=== PATIENT | female | born 1960 | race Caucasian/White ===

== ENCOUNTER 2021-06-10 10:02 | Inpatient (IN) | payer OTHER ==
[~2021-06-10] VITALS: Ht 160 cm; Wt 98.4 kg
[2021-06-10 10:29] LABS: HEMOGLOBIN 14.8 gm/dl (12.3-15.3); RED BLOOD COUNT 4.85 M/UL (4.00-5.10); WHITE BLOOD COUNT 18.1 K/UL (4.5-11.0)
[2021-06-10 10:55] LABS: BUN/CREATININE RATIO 20 (0-10)
[2021-06-10] MEDS ORDERED: MONTELUKAST SOD10 MG PO (16:20)
[2021-06-10] MEDS ORDERED: JANUVIA100 MG PO (16:20)
[2021-06-10] MEDS ORDERED: CARVEDILOL25 MG PO (16:21)
[2021-06-10] MEDS ORDERED: ATORVASTATIN CA20 MG PO (16:21)
[2021-06-10] MEDS ORDERED: BENAZEPRIL HCL20 MG PO (16:21)
[2021-06-10] MEDS ORDERED: CELEXA40 MG PO (16:22)
[2021-06-10] MEDS ORDERED: HYDROCHLOROTHIA25 MG PO (16:22)
[2021-06-10] MEDS ORDERED: GLYBURIDE5 MG PO (16:22)
[2021-06-10] MEDS ORDERED: LEVOTHYROXINE25 MCG PO (16:23)
[2021-06-10] MEDS ORDERED: ASPIRIN EC81 MG PO (16:23)
[2021-06-10] MEDS ORDERED: OMEPRAZOLE40 MG PO (16:23)
[2021-06-10] MEDS ORDERED: FISH OIL 1,0001 EAC1 PO (16:24)
[2021-06-10] MEDS ORDERED: DAILY VALUE1 EACH PO (16:24)
[2021-06-11 06:01] LABS: HEMOGLOBIN 12.6 gm/dl (12.3-15.3); RED BLOOD COUNT 4.22 M/UL (4.00-5.10)
[2021-06-11 06:23] LABS: BUN/CREATININE RATIO 20 (0-10)
[2021-06-12 06:52] LABS: HEMOGLOBIN 12.4 gm/dl (12.3-15.3); RED BLOOD COUNT 4.17 M/UL (4.00-5.10); WHITE BLOOD COUNT 13.8 K/UL (4.5-11.0)
[2021-06-12 07:37] LABS: BUN/CREATININE RATIO 20 (0-10)
[2021-06-13 06:44] LABS: HEMOGLOBIN 12.6 gm/dl (12.3-15.3); RED BLOOD COUNT 4.24 M/UL (4.00-5.10); WHITE BLOOD COUNT 15.2 K/UL (4.5-11.0)
[2021-06-13 07:01] LABS: BUN/CREATININE RATIO 23 (0-10)
[2021-06-14 06:54] LABS: RED BLOOD COUNT 4.18 M/UL (4.00-5.10); WHITE BLOOD COUNT 11.9 K/UL (4.5-11.0)
[2021-06-14 07:13] LABS: BUN/CREATININE RATIO 15 (0-10)
== END 2021-06-14 12:41 | disposition home or self-care (01) | DRG 389 ==
LOC: ER1 10:02 → M/S 13:19 → CDU 13:19 → M/S 17:12
PROVIDERS: Emergency Medicine; Internal Medicine; Physician Assistant; ADMIT Internal Medicine
PROC: 0DH67UZ Insertion of Feeding Device into Stomach, Via Natural or Artificial Opening (ICD-10-PCS; principal; 2021-06-10)
DX: K56.609 Unspecified intestinal obstruction, unspecified as to partial versus complete obstruction (principal); I42.8 Other cardiomyopathies; E66.01 Morbid (severe) obesity due to excess calories; K76.0 Fatty (change of) liver, not elsewhere classified; E11.9 Type 2 diabetes mellitus without complications; I10 Essential (primary) hypertension; I44.7 Left bundle-branch block, unspecified; E78.5 Hyperlipidemia, unspecified; E03.9 Hypothyroidism, unspecified; J45.909 Unspecified asthma, uncomplicated; I25.10 Atherosclerotic heart disease of native coronary artery without angina pectoris; E86.0 Dehydration; K75.81 Nonalcoholic steatohepatitis (NASH); Z83.3 Family history of diabetes mellitus; Z90.49 Acquired absence of other specified parts of digestive tract; Z68.38 Body mass index [BMI] 38.0-38.9, adult
CPT/HCPCS: 36415; 43752; 71045; 74018; 74019; 80048; 80053; 81001; 82550; 82553; 82962; 83605; 83690; 83874; 84484; 85025; 93005; 96374; 96375; 99285; C9113; J1650; J2270; J2405; J7040; Q9963; Q9967